=== PATIENT | female | born 1975 | race Hispanic/Latino ===

== ENCOUNTER 2024-08-17 09:43 | Emergency (ER) | payer OTHER ==
[2024-08-17 10:35] LABS: Bilirubin Negative (Negative); Blood, Urine Trace (Negative); Glucose, Urine (Dipstick) Negative (Negative); Ketone, Urine 15 mg/dL (Negative); Leukocyte Negative (Negative); Nitrite Negative (Negative); Protein, Urine (Dipstick) Negative (Neg-Trace); Urobilinogen 0.2 mg/dL (Less than 2)
[2024-08-17 10:42] LABS: Clarity Hazy (Clear)
[2024-08-17 10:49] LABS: Bacteria/HPF 1+ HPF (None Seen); CAUTI Indications for Culture Alt mental st,lethar; RBC/HPF 0-3 HPF (0-3); WBC/HPF 0-3 HPF (0-3)
[2024-08-17 10:50] LABS: Pregnancy Test - Urine (BHCG) Negative (Negative); Pregu Control Background? CLEAR/WHITE (CLR/WHITE); Pregu Control Bar Appear? YES (CONTROL BAR)
[2024-08-17 10:50] LABS: Urine Culture Reflex No No
== END 2024-08-17 11:10 | disposition home or self-care (01) ==
LOC: MADERS 09:43
DX: R00.2 Palpitations (principal); R11.0 Nausea
CPT/HCPCS: 81001; 81025; 99285